=== PATIENT | female | born 1970 | race Two or more races ===

== ENCOUNTER → 2019-10-13 | Outpatient (CLI) | payer OTHER ==
[~2019-10-13] MED LIST: BACLOFEN5 MG PO; CLONAZEPAM0.125 MG PO; CYMBALTA20 MG PO; MOBIC7.5 MG PO; NEURONTIN300 MG PO; TRAMADOL HCL50 MG PO; ZANAFLEX2 MG PO
== END | disposition home or self-care (01) ==
LOC: RAD 11:18
DX: Z01.811 Encounter for preprocedural respiratory examination (principal)

== ENCOUNTER 2019-10-17 05:10 | Day surgery (SDC) | payer OTHER | END 2019-10-17 10:25 | disposition home or self-care (01) | LOC: CIR.AMB 05:10 | DX: N84.0 Polyp of corpus uteri (principal); N80.0 Endometriosis of uterus ==